=== PATIENT | female | born 1985 | race Asian ===

== ENCOUNTER 2016-10-27 18:55 | Emergency (ER) | payer OTHER ==
[~2016-10-27] VITALS: Ht 167.6 cm; Wt 78.9 kg
[2016-10-27 19:15] VITALS: BP 131/88
[2016-10-27 19:43] LABS: KETONES,URINE NEGATIVE (NEGATIVE); LEUKOCYTE ESTERASE ,URINE NEGATIVE (NEGATIVE); NITRITE,URINE NEGATIVE (NEGATIVE); PH,URINE 7 (4.5-8.0); PROTEIN,URINE NEGATIVE (NEGATIVE); UROBILINOGEN,URINE NORMAL MG/DL (0.0-1.0)
[2016-10-27 19:44] LABS: APPEARANCE,URINE CLEAR
[2016-10-27] MEDS ORDERED: IBUPROFEN600 MG ORAL (20:41)
[2016-10-27] MEDS ORDERED: ROBAXIN-750750 MG PO (20:41)
[2016-10-27 21:00] VITALS: BP 135/82
--- NOTE | 2016-10-27 21:54 | Emergency Room Report ---
History of Present Illness General Chief Complaint: Back Pain-No Injury Source: Patient Present Illness HPI The patient is a 31-year-old female presenting for lower back pain. 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 Pain has been gradually increasing and is now a 6/10 dull ache. Does not radiate. Worse with movement such as bending over. She denies previous injury to the back. She denies any other pain or symptoms including abdominal pain, fever, chills Allergies: Coded Allergies: No Known Allergies (Unverified , 10/27/16) Patient History Past Medical History: see triage record Pertinent Family History: none Reviewed Nursing Documentation: PMH: Agreed, PSxH: Agreed Nursing Documentation-PMH Past Medical History: No Stated History Review of Systems All Other Systems: negative except mentioned in HPI Physical Exam Vital Signs Date Time Temp Pulse Resp B/P Pulse Ox O2 Delivery O2 Flow Rate FiO2 10/27/16 18:57 98.1 66 20 131/88 99 Room Air Sp02 EP Interpretation: reviewed, normal General Appearance: no apparent distress, alert, GCS 15, non-toxic Head: normocephalic, atraumatic Eyes: bilateral eye PERRL, bilateral eye normal inspection ENT: hearing grossly normal, normal pharynx, no angioedema, normal voice Musculoskeletal: normal inspection, normal range of motion, tender - TTP diffusely over the lumbar region including mid spine and paraspinal muscles Neurologic: alert, oriented x3, responsive, motor strength/tone normal, sensory intact, speech normal Psychiatric: judgement/insight normal, memory normal, mood/affect normal, no suicidal/homicidal ideation Skin: normal color, no rash, warm/dry, well hydrated Medical Decision Making PA Attestation Dr. Gudino is my supervising physician. Patient management was discussed with my supervising physician Diagnostic Impression: Primary Impression: Lumbar strain Qualified Codes: S39.012A - Strain of muscle, fascia and tendon of lower back , initial encounter ER Course The patient is a 31-year-old female presenting for lower back pain. Ddx considered include but not limited to lumbar strain, degenerative disease, epidural abscess, cauda equina, disc herniation, among others PE: NAD There is tenderness to palpation over the mid lumbar spine as well as bilateral paraspinal muscles. No step-offs. No obvious deformity. Normal gait. Sensation is intact CT scan of the L. spine is unremarkable She'll be discharged home with a prescription for Motrin and Robaxin. She will use a hot pack at home and will follow up with primary doctor in workers compensation. She was informed she may need MRI if pain continues or worsens. ER precautions given CT/MRI/US Diagnostic Results CT/MRI/US Diagnostic Results : Imaging Test Ordered: CT L spine Impression unremarkable Last Vital Signs Date Time Temp Pulse Resp B/P Pulse Ox O2 Delivery O2 Flow Rate FiO2 10/27/16 21:00 98.1 61 16 135/82 100 Room Air Status: improved Disposition: HOME, SELF-CARE Condition: Improved Scripts Ibuprofen* (MOTRIN*) 600 Mg Tablet 600 MG ORAL Q8H Y for For Pain, #30 TAB 0 Refills Prov: JOURDAN STOVER 10/27/16 Methocarbamol* (ROBAXIN-750*) 750 Mg Tablet 750 MG PO TID, #21 TAB 0 Refills Prov: JOURDAN STOVER 10/27/16 Patient Instructions: Back Pain, Adult Additional Instructions: I discussed my findings with the patient. All questions and concerns have been answered. Treatment and medication compliance have been addressed. I advised the patient that they need to follow up with PMD in 3-5 days. Return to ED if symptoms worsen, new symptoms arise, or if needed for any reason. Patient verbalized understanding of discharge instructions. JOURDAN STOVER Oct 27, 2016 21:54
--- NOTE | 2016-10-28 10:37 | Diagnostic Imaging Report ---
Indications: PAIN work-related injury, and after lifting Technique: Spiral acquisitions obtained through the lumbar spine. Multiplanar reconstructions were generated. No IV contrast utilized. Total dose length product within the mGycm. CTDIvol(s) 16 mGy. Dose reduction achieved using automated exposure control Comparison: None Findings: Bony alignment is normal. Vertebral body heights are preserved. Disc spaces are preserved. No acute fractures. No dislocations. No significant disc bulge or protrusion, spinal stenosis, or neural foraminal stenosis. The included extraspinal soft tissues are unremarkable Impression: Negative This agrees with the preliminary interpretation provided overnight by Dr. Chand The CT scanner at [facility] is accredited by the [employer] and the scans are performed using protocols designed to limit radiation exposure to as low as reasonably achievable to attain images of sufficient resolution adequate for diagnostic evaluation.
== END 2016-10-27 21:00 | disposition home or self-care (01) ==
LOC: EMR 19:20
DX: S39.012A Strain of muscle, fascia and tendon of lower back, initial encounter (principal); X50.0XXA Overexertion from strenuous movement or load, initial encounter; Y93.9 Activity, unspecified; Y99.0 Civilian activity done for income or pay
CPT/HCPCS: 72131; 81003; 81025; 99284